=== PATIENT | female | born 1975 | race Caucasian/White ===

== ENCOUNTER 2016-07-25 09:43 | Emergency (ER) | payer BC ==
[~2016-07-25] VITALS: Ht 170.2 cm; Wt 70.0 kg
[2016-07-25 09:46] VITALS: BP 122/69
[2016-07-25] MEDS ORDERED: ACETAMINOPHEN 325MG TABLET PO ONE (10:15)
== END 2016-07-25 11:10 | disposition home or self-care (01) ==
LOC: ER 10:36
DX: S00.83XA Contusion of other part of head, initial encounter (principal); S09.8XXA Other specified injuries of head, initial encounter; W22.8XXA Striking against or struck by other objects, initial encounter; Y93.89 Activity, other specified; Y99.8 Other external cause status; Y92.000 Kitchen of unspecified non-institutional (private) residence as the place of occurrence of the external cause
CPT/HCPCS: 99283